=== PATIENT | female | born 1975 | race Caucasian/White ===

== ENCOUNTER 2018-12-01 10:32 | Outpatient (CLI) | payer BC ==
--- NOTE | 2018-12-01 11:46 | MMO ---
BILATERAL MAMMOGRAMS: DATE: 12/01/18 HISTORY: Screening mammography. COMPARISON: 08/06/17 and 06/26/16. FINDINGS: Scattered fibroglandular densities. Bilateral implants and intramammary lymph nodes are stable. No ne w dominant mass or suspicious calcifications. The study was evaluated with the assistance of computer-aided detection. IMPRESSION: BIRADS 2: Benign Finding(s) Suggest routine follow-up. POS: [facility]
== END 2018-12-01 10:33 | disposition home or self-care (01) ==
LOC: SCSMAMMO 10:32
PROVIDERS: ATTEND Family Medicine
DX: Z12.31 Encounter for screening mammogram for malignant neoplasm of breast (principal)
CPT/HCPCS: 77067